=== PATIENT | male | born 1960 | race Caucasian/White ===

== ENCOUNTER 2020-11-29 07:45 | Outpatient (CLI) | payer OTHER ==
[2020-11-29 14:33] LABS: #Basophils 0.1 10x3/uL (0.0-0.2); #Eosinphils 0.1 10x3/uL (0.0-0.5); #Monocytes 0.5 10x3/uL (0.0-1.1); #Neutrophils 5.2 10x3/uL (1.5-8.4); %Eosinophils 1.2 % (0.0-6.0); %Lymphocytes 27.8 % (18.0-47.0); %Neutrophils 63.4 % (40.0-75.0); Hemoglobin 15.4 g/dL (14.0-18.0); Mean Corpuscular HGB CONC 33.8 G/DL (32.0-36.0); Mean Corpuscular Hemoglobin 30.2 PG (27.0-33.0); Mean Corpuscular Volume 89.2 fl (80.0-100.0); Mean Platelet Volume 9.4 fl (7.4-10.4); Platelet Count 283 10x3/uL (130-400); RBC Distribution Width 12.6 % (11.5-14.5); White Blood Cell (WBC) Count 8.3 10x3/uL (4.5-11.0)
[2020-11-29 14:56] LABS: ALT (SGPT) 16 U/L (8-55); AST (SGOT) 18 U/L (5-34); Albumin 4.8 g/dL (3.5-5.0); Alkaline Phosphatase 72 U/L (40-110); Anion Gap 15 mmol/L (10-20); BUN (Urea Nitrogen) 18 mg/dL (8.4-25.7); Bilirubin, Total 0.4 mg/dL (0.2-1.2); Calc. Creatinine Clearance 0 mL/min (70-130); Calcium 9.8 mg/dL (7.8-10.44); Carbon Dioxide 22 mmol/L (22-29); Chloride 106 mmol/L (98-107); Globulin 2.9 g/dL (2.4-3.5); Glucose 73 mg/dL (70-105); Potassium 4.3 mmol/L (3.5-5.1); Protein, Total 7.7 g/dL (6.0-8.3); Sodium 139 mmol/L (136-145)
[2020-11-30 06:16] LABS: SARS-CoV-2 PCR by NAA Not Detected (NotDetected)
== END 2020-11-29 07:46 | disposition home or self-care (01) ==
LOC: LABBT 07:45
PROVIDERS: ATTEND Specialist
DX: Z01.812 Encounter for preprocedural laboratory examination (principal); B18.2 Chronic viral hepatitis C; K80.20 Calculus of gallbladder without cholecystitis without obstruction; K43.2 Incisional hernia without obstruction or gangrene
CPT/HCPCS: 80053; 85025; 87635; U0003; U0005

== ENCOUNTER 2020-12-04 05:50 | Day surgery (SDC) | payer OTHER ==
[2020-12-02 11:41] VITALS: BMI 28.5
[2020-12-04] MEDS ORDERED: Acetaminophen 500 MG TAB ONE (06:02)
[2020-12-04] MEDS ORDERED: Scopolamine 1.5 mg/72 hour Patch ONE (06:03)
[2020-12-04] MEDS ORDERED: Ketorolac Tromethamine 30 MG/ML VIAL ONE (06:03)
[2020-12-04] MEDS ORDERED: EPINEPHrine 1 MG/ML AMP ONE (06:44)
[2020-12-04] MEDS ORDERED: Bupivacaine PF 0.5% 30 ML VIAL ONE (06:44)
[2020-12-04] MEDS ORDERED: Fentanyl 100 MCG/2 ML VIAL ONE ×3 (07:22→10:26)
[2020-12-04] MEDS ORDERED: Lidocaine 1% PF 5 ML VIAL ONE (09:25)
[2020-12-04] MEDS ORDERED: PROPOFOL 200 MG/20 ML VIAL ONE (09:25)
[2020-12-04] MEDS ORDERED: Labetalol HCl 100 MG/20 ML VIAL ONE (09:25)
[2020-12-04] MEDS ORDERED: Ondansetron PF 4 MG/2 ML Vial ONE (09:25)
[2020-12-04] MEDS ORDERED: Rocuronium Bromide 10 MG/ML (10ML VIAL) ONE (09:25)
[2020-12-04] MEDS ORDERED: Dexamethasone 20 MG/5 ML VIAL ONE (09:25)
[2020-12-04] MEDS ORDERED: Glycopyrrolate 0.2 MG/ML 5 ML SYRINGE ONE (09:25)
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
[2020-12-04] MEDS ORDERED: Morphine 2 MG/ML VIAL ONE ×5 (11:03→11:57)
[2020-12-04] MEDS ORDERED: Promethazine HCl 25 MG/ML VIAL ONE (11:32)
[2020-12-04] MEDS ORDERED: HYDROcodone/Acetaminophen 5/325 mg Tablet ONE (13:09)
== END 2020-12-04 13:30 | disposition home or self-care (01) ==
LOC: SDC 05:50
PROVIDERS: ATTEND Specialist
PROC: 0FT44ZZ Resection of Gallbladder, Percutaneous Endoscopic Approach (ICD-10-PCS; principal; 2020-12-04)
DX: K80.10 Calculus of gallbladder with chronic cholecystitis without obstruction (principal); K66.0 Peritoneal adhesions (postprocedural) (postinfection); F10.10 Alcohol abuse, uncomplicated; F41.9 Anxiety disorder, unspecified; F32.9 Major depressive disorder, single episode, unspecified; F17.210 Nicotine dependence, cigarettes, uncomplicated; Z87.828 Personal history of other (healed) physical injury and trauma
CPT/HCPCS: 88304; J0171; J0690; J1100; J1610; J1885; J2270; J2405; J2550; J2704; J3010; S0020

== ENCOUNTER 2021-11-11 09:54 | Emergency (ER) | payer OTHER ==
[2021-11-11 22:35] LABS: SARS-CoV-2 PCR by NAA DETECTED (NotDetected)
== END 2021-11-11 10:43 | disposition home or self-care (01) ==
LOC: ERS 09:54
DX: U07.1 COVID-19 (principal); F17.200 Nicotine dependence, unspecified, uncomplicated
CPT/HCPCS: 99284; U0003; U0005

== ENCOUNTER 2025-07-04 15:33 | Emergency (ER) | payer BC, OTHER ==
[2025-07-04 16:34] LABS: #Basophils 0.08 10x3/uL (0.0-0.2); #Eosinophils 0.10 10x3/uL (0.0-0.7); #Monocytes 0.40 10x3/uL (0.11-0.59); #Neutrophils 5.42 10x3/uL (1.40-6.50); %Basophils 1.0 % (0.0-1.0); %Eosinophils 1.3 % (0.0-10.0); %Lymphocytes 22.2 % (21.0-51.0); %Monocytes 5.1 % (0.0-10.0); %Neutrophils 69.8 % (42.0-75.0); Hematocrit 41.3 % (42.0-52.0); Hemoglobin 14.3 g/dL (14.0-18.0); Mean Corpuscular Hemoglobin 29.5 pg (27.0-31.0); Mean Corpuscular Volume 85.3 fL (78.0-98.0); Platelet Count 242 10x3/uL (130-400); Red Blood Cell (RBC) Count 4.84 mill/uL (4.70-6.10); White Blood Cell (WBC) Count 7.78 10x3/uL (4.8-10.8)
[2025-07-04 16:50] LABS: ALT (SGPT) 12 U/L (Less than 45); AST (SGOT) 20 U/L (11-34); Albumin 4.2 g/dL (3.1-4.5); Alkaline Phosphatase 71 U/L (40-110); Anion Gap 15 mmol/L (10-20); BUN (Urea Nitrogen) 12 mg/dL (8.4-25.7); Bilirubin, Total 0.3 mg/dL (0.3-1.2); Calc. Creatinine Clearance 0 mL/min (70-130); Calcium 9.3 mg/dL (7.8-10.44); Carbon Dioxide 20 mmol/L (23-31); Chloride 106 mmol/L (98-107); Globulin 2.9 g/dL (2.4-3.5); Glucose 100 mg/dL (80-115); Potassium 3.9 mmol/L (3.5-5.1); Sodium 137 mmol/L (136-145)
== END 2025-07-04 17:42 | disposition home or self-care (01) ==
LOC: ERS 15:33
DX: R19.7 Diarrhea, unspecified (principal); R29.700 NIHSS score 0; F17.200 Nicotine dependence, unspecified, uncomplicated
CPT/HCPCS: 36415; 71045; 80053; 84484; 85025; 87428; 93005